=== PATIENT | male | born 1950 | race Caucasian/White ===

== ENCOUNTER → 2019-11-25 | Outpatient (CLI) | payer MEDICARE ==
[2019-11-25 09:08] LABS: HCT 50.3 % (39.0-53.0); HGB 15.5 gm/dL (13.0-17.5); MCH 29.1 pg (25.0-35.0); MCHC 30.8 g/dL (31.0-37.0); MCV 94.4 fL (80.0-100.0); Mean Platelet Volume 7.2; Platelet Count 282 k/uL (150-450); RBC 5.33 m/uL (4.30-5.90); RDW 14.1 % (11.5-15.5)
[2019-11-25 13:53] LABS: Eosinophils # (M) 0.25 k/uL (0-0.7); Lymphocytes # (M) 19.25 k/uL (1.0-4.8); Neutrophils % (M) 20 %; Nucleated Red Blood Cells 0 /100 WBC (0-0); Total Cells Counted 100
[2019-11-25 17:26] LABS: % Iron Saturation 25.19 (15.00-50.00)
[2019-11-25 17:27] LABS: African American GFR (CKD) 104.2 (60.0-200.0); Albumin 4.4 g/dL (3.80-4.90); Albumin/Globulin Ratio 2.32 (1.60-3.17); Anion Gap 13.3 mmol/L (4.00-12.00); BUN/Creat Ratio 18.75 Ratio (12.00-20.00); Calcium 9.4 mg/dL (8.7-10.3); Carbon Dioxide 21.7 mmol/L (21.6-31.8); Chol/HDL Ratio 3.9; Globulin 1.9 g/dL (1.6-3.3); LDL Cholesterol,Calculated 93.6 mg/dL (0.0-131.0); Non-African American GFR(CKD) 89.9 (60.0-200.0); Potassium 4.5 mmol/L (3.5-5.5); Total Bilirubin 0.6 mg/dL (0.3-1.2); Total Protein 6.3 g/dL (6.2-8.2); VLDL Calculation 19.4 mg/dL (5.00-40.00)
[2019-11-25 17:43] LABS: Ferritin 343.9 ng/mL (22.0-322.0)
== END | disposition home or self-care (01) ==
LOC: LABWHC1 08:09
PROVIDERS: ATTEND Internal Medicine
DX: D50.0 Iron deficiency anemia secondary to blood loss (chronic) (principal); E78.2 Mixed hyperlipidemia; E03.9 Hypothyroidism, unspecified
CPT/HCPCS: 36415; 80053; 80061; 82728; 83540; 83550; 84439; 84443; 85025

== ENCOUNTER → 2024-12-10 | Outpatient (CLI) | payer MEDICARE ==
--- NOTE | 2024-12-10 17:46 | CA ---
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 LV Systolic Volume MOD 4C 32.1 cm??? LV Ejection Fraction MOD 4C 71.5 % LV Cardiac Index MOD 4C 2057.1 cm???/min???m??? LV Diastolic Length 4C 7.2 cm LV Systolic Length 4C 5.2 cm LV Diastolic Volume MOD 2C 101.7 cm??? LV Systolic Volume MOD 2C 31.4 cm??? LV Ejection Fraction MOD 2C 69.1 % LV Cardiac Index MOD 2C 1796.4 cm???/min???m??? LV Diastolic Length 2C 8.1 cm LV Systolic Length 2C 6.1 cm M-MODE Aortic Root Diameter MM 3.7 cm AV Cusp Separation MM 2.5 cm DOPPLER AV Peak Velocity 150.3 cm/s AV Peak Gradient 9.0 mmHg Mitral E Point Velocity 81.3 cm/s Mitral A Point Velocity 70.1 cm/s Mitral E to A Ratio 1.2 MV Deceleration Time 287.3 ms MV E' Velocity 8.0 cm/s Mitral E to MV E' Ratio 10.2 FINDINGS Left Ventricle Left ventricular ejection fraction is estimated at 55-60 %. Left ventricular cavity size normal. Left ventricular wall thickness normal. Normal left ventricular wall motion. Right Ventricle Unable to estimate the right ventricular systolic pressure.normal right ventricular size and function. Right Atrium No right atrial thrombus or mass seen. Left Atrium Normal left atrial size. No left atrial thrombus or mass present. Mitral Valve Structurally normal mitral valve. No evidence for mitral valve prolapse. No mitral stenosis. Mild mitral regurgitation. Aortic Valve Trileaflet aortic valve. No aortic valve stenosis or regurgitation. Tricuspid Valve Structurally normal tricuspid valve. No tricuspid stenosis, regurgitation or prolapse. Pulmonic Valve Structurally normal pulmonic valve. No pulmonic regurgitation. Pericardium No pericardial effusion. Aorta Normal size aortic root and proximal ascending aorta. CONCLUSIONS LVEF 55% No obvious regional wall motion abnormality. Normal RV size and systolic function Mild mitral regurgitation Previewed by: Dr Catarino Cobian (Electronically Signed) Final Date: 10 December 2024 17:46
--- NOTE | 2024-12-10 23:20 | US ---
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 Additional History: .... TECHNIQUE: Grayscale, color Doppler and spectral Doppler evaluation of the bilateral carotid systems and vertebral arteries. Indirect Doppler criteria was utilized. FINDINGS: EXAM MEASUREMENTS: RIGHT: Peak Systolic Velocity (PSV) cm/sec ----- Right CCA: 124.4 ----- Right ICA: 82.0 ----- Right ECA: 125.4 ICA/CCA ratio: 0.7 RIGHT: End Diastole cm/sec ----- Right CCA: 19.8 ----- Right ICA: 21.5 ----- Right ECA: 0.0 LEFT: Peak Systolic Velocity (PSV) cm/sec ----- Left CCA: 89.7 ----- Left ICA: 96.3 ----- Left ECA: 119.8 ICA/CCA ratio: 1.1 LEFT: End Diastole cm/sec ----- Left CCA: 19.3 ----- Left ICA: 20.4 ----- Left ECA: 13.7 VERTEBRALS (direction of flow): Right Vertebral: Antegrade Left Vertebral: Antegrade Rhythm: Normal MANAGER PROCUREMENT NOTES: No elevated velocities. Some plaque seen in bilateral bulbs. Color Doppler imaging shows patency with blood flow throughout the carotid artery. IMPRESSION: 1. Minimal plaquing present, no significant flow-limiting stenosis based on velocities. Criteria for Assigning % of Stenosis / Diameter reduction (Estimation based on the indirect measurements of the internal carotid artery velocities (ICA PSV). 1. Normal (no stenosis)=ICA PSV < 180 cm/s: ratio < 2.0: ICA EDV<40 cm/s. 2. Less than 50% stenosis=ICA PSV < 180 cm/s: ratio < 2.0: ICA EDV<40 cm/s. 3. 50 to 69% stenosis=ICA PSV of 180 to 230 cm/s: ration 2.0 ? 4.0: ICA EDV 40-100 cm/s. PSV 125-180 cm/sec and ICA/CCA PSV Ratio ? 2.0 is also consistent with 50-69% stenosis 4. Greater than 70% stenosis to near occlusion= ICA PSV > 230 cm/s: ratio > 4.0: ICA EDV > 100 cm/s. 5. Near occlusion= ICA PSV velocities may be low or undetectable: variable ratio and ICA EDV. 6. Total occlusion=unable to detect flow. [facility], , 12/10/2024 11:17 PM
== END | disposition home or self-care (01) ==
LOC: RADUSWWP 15:11
PROVIDERS: ATTEND Internal Medicine
DX: I25.10 Atherosclerotic heart disease of native coronary artery without angina pectoris (principal); I65.23 Occlusion and stenosis of bilateral carotid arteries; I34.0 Nonrheumatic mitral (valve) insufficiency; I25.85 Chronic coronary microvascular dysfunction
CPT/HCPCS: 93306; 93880